=== PATIENT | male | born 1980 | race Caucasian/White ===

== ENCOUNTER 2017-11-01 08:48 | Emergency (ER) | payer MEDICAID ==
[~2017-11-01] VITALS: Ht 177.8 cm; Wt 73.5 kg
[2017-11-01 08:51] VITALS: BP 142/79; Ht 177.8 cm; Wt 73.5 kg
== END 2017-11-01 10:13 | disposition home or self-care (01) ==
LOC: ED 08:48
DX: H00.11 Chalazion right upper eyelid (principal)